=== PATIENT | male | born 1965 | race Two or more races ===

== ENCOUNTER 2018-08-17 10:15 | Observation (INO) | payer BC, OTHER ==
[2018-08-17] MEDS ORDERED: Sodium Chloride 0.9% 10 ML Syringe FLUSH PRN (11:12)
--- NOTE | 2018-08-17 11:12 | EDM.PDOC ---
ED HPI GENERAL MEDICAL PROBLEM - General Chief Complaint: Chest Pain Stated Complaint: CHEST PAIN Time Seen by Provider: 08/17/18 11:09 Source of Information: Reports: Patient History Limitations: Reports: Language Barrier - History of Present Illness INITIAL COMMENTS - FREE TEXT/NARRATIVE: Patient is a 53 year old yakut speaking male who presents to the E.D. complaining of bilateral chest pain, bilateral shoulder pain, and thoracic back pain. States this has been going on for the past 3 months but notes increase over the past week. Patient states with any exertional activity He becomes tired easier with development of pain that radiates from his back along the lateral aspect of his chest and into the anterior aspect of his chest. This is unusual for the patient. 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 At times he does feel short of breath. At no time does he experience any fever, cough, palpitations, dizziness, diaphoresis, abdominal pain, nausea/vomiting, and/or any additional complaints. States he can walk 10 stairs before he gets short of breath. There's been no increase in weight, PND, orthopnea. no pedal edema noted. He has a history of hypertension and high cholesterol. He is on no medications. There is a family history of first degree relative with heart disease. He denies any history of coronary disease or diabetes. He does not smoke or use alcohol or any drugs. he is here working with no PCP locally. Bilateral Shoulder Pain Score (Numeric/FACES): 10 - Related Data Allergies Allergy/AdvReac Type Severity Reaction Status Date / Time Penicillins Allergy Cannot Verified 08/17/18 10:42 Remember Past Medical History - Past Surgical History Other Musculoskeletal Surgeries/Procedures:: inguinal herina repair Social & Family History - Tobacco Use Smoking Status *Q: Never Smoker - Caffeine Use Caffeine Use: Reports: None - Recreational Drug Use Recreational Drug Use: No ED ROS GENERAL - Review of Systems Review Of Systems: See Below Constitutional: Denies: Fever, Chills, Malaise, Weakness, Decreased Appetite HEENT: Reports: No Symptoms Respiratory: Reports: Pleuritic Chest Pain. Denies: Shortness of Breath, Wheezing, Cough, Sputum, Hemoptysis Cardiovascular: Reports: No Symptoms, Chest Pain. Denies: Blood Pressure Problem, Dyspnea on Exertion (Unchanged. Able to walk about 10 stairs without being tired. Deconditioned.), Edema, Lightheadedness (With bending over and standing up.), Orthopnea, Palpitations, PND, Syncope GI/Abdominal: Denies: Abdominal Pain, Black Stool, Bloody Stool, Constipation, Diarrhea, Decreased Appetite, Distension, Flatus, Hematemesis, Hematochezia, Melena, Nausea, Vomiting Skin: Reports: No Symptoms Neurological: Reports: No Symptoms. Denies: Confusion, Dizziness, Headache, Numbness, Tingling ED EXAM, GENERAL - Physical Exam Exam: See Below Exam Limited By: Language Barrier (American-speaking) General Appearance: Alert, WD/WN, No Apparent Distress Eye Exam: Bilateral Eye: EOMI, Normal Inspection, PERRL Ears: Hearing Grossly Normal Nose: Normal Inspection Throat/Mouth: Normal Inspection, Normal Oropharynx, Normal Voice, No Airway Compromise Head: Atraumatic, Normocephalic Neck: Normal Inspection, Supple, Non-Tender, Full Range of Motion Respiratory/Chest: No Respiratory Distress, Lungs Clear, Normal Breath Sounds, No Accessory Muscle Use, Other (Tenderness along the lateral chest garcia increased with palpation and also taking a deep breath. Patient also has complaints of increasing pain with palpation of the mid thoracic back region and along the scapula and trapezius region with palpation. He does feel tight. No bony abnormalities, swelling, bruising, rash present.) Cardiovascular: Normal Peripheral Pulses, Regular Rate, Rhythm, No Edema, No Murmur Peripheral Pulses: 2+: Radial (L), Radial (R), Posterior Tibial (L), Posterior Tibial (R) GI/Abdominal: Normal Bowel Sounds, Soft, Non-Tender, No Organomegaly, No Distention Extremities: Normal Inspection, Normal Range of Motion, Non-Tender, No Pedal Edema Neurological: Alert, Oriented, CN II-XII Intact, Normal Cognition, Normal Gait Psychiatric: Normal Affect, Normal Mood Skin Exam: Warm, Dry, Intact, Normal Color Course - Vital Signs Last Recorded V/S: Last Vital Signs Temp 99.0 F 08/17/18 20:53 Pulse 62 08/17/18 20:53 Resp 12 08/17/18 20:53 BP 113/65 08/17/18 20:53 Pulse Ox 94 L 08/17/18 20:53 - Orders/Labs/Meds Orders: Active Orders 24 hr Category Date Time Status Sodium Chloride 0.9% [Saline Flush] Med 08/17/18 11:12 Active 10 ml FLUSH ASDIRECTED PRN Peripheral IV Insertion Adult [OM.PC] Routine Oth 08/17/18 11:12 Ordered Medication Orders Acetaminophen (Tylenol) 650 mg PO Q4H PRN PRN Reason: Pain (Mild 1-3)/fever Cyclobenzaprine HCl (Flexeril) 10 mg PO TID PRN PRN Reason: Spasms Ibuprofen (Motrin) 400 mg PO Q6H PRN PRN Reason: Pain (mild 1-3) Ondansetron HCl (Zofran Odt) 4 mg PO Q4H PRN PRN Reason: nausea, able to take PO Sodium Chloride (Saline Flush) 10 ml FLUSH ASDIRECTED PRN PRN Reason: Keep Vein Open Last Admin: 08/17/18 11:56 Dose: 10 ml Temazepam (Restoril) 15 mg PO BEDTIME PRN PRN Reason: Sleep Labs: Laboratory Tests 08/17/18 08/17/18 08/17/18 Range/Units 11:31 11:31 11:31 WBC 6.97 (4.23-9.07) K/mm3 RBC 5.01 (4.63-6.08) M/mm3 Hgb 14.5 (13.7-17.5) gm/L Hct 43.7 (40.1-51.0) % MCV 87.2 (79.0-92.2) fl MCH 28.9 (25.7-32.2) pg MCHC 33.2 (32.2-35.5) g/dl RDW Std Deviation 41.8 (35.1-43.9) fL Plt Count 175 (163-337) K/mm3 MPV 12.1 (9.4-12.3) fl Neutrophils % (Manual) 66 H (40-60) % Band Neutrophils % 0 (0-10) % Lymphocytes % (Manual) 26 (20-40) % Atypical Lymphs % 0 % Monocytes % (Manual) 7 (2-10) % Eosinophils % (Manual) 1 (0.8-7.0) % Basophils % (Manual) 0 L (0.2-1.2) Platelet Estimate Adequate RBC Morph Comment Normal ESR 11 (0-15) mm/hr PT 10.3 (9.5-12.1) SECONDS INR 0.94 APTT 27 (24-31) SECONDS Sodium (136-145) mEq/L Potassium (3.5-5.1) mEq/L Chloride (98-107) mEq/L Carbon Dioxide (21-32) mEq/L Anion Gap (5-15) BUN (7-18) mg/dL Creatinine (0.7-1.3) mg/dL Est Cr Clr Drug Dosing mL/min Estimated GFR (MDRD) (>60) mL/min BUN/Creatinine Ratio (14-18) Glucose (74-106) mg/dL Calcium (8.5-10.1) mg/dL Magnesium (1.8-2.4) mg/dl Total Bilirubin (0.2-1.0) mg/dL AST (15-37) U/L ALT (16-63) U/L Alkaline Phosphatase (46-116) U/L Troponin I (0.00-0.056) ng/mL C-Reactive Protein (<1.0) mg/dL Total Protein (6.4-8.2) g/dl Albumin (3.4-5.0) g/dl Globulin gm/dL Albumin/Globulin Ratio (1-2) Lipase (73-393) U/L 08/17/18 08/17/18 08/17/18 Range/Units 11:31 11:31 11:31 WBC (4.23-9.07) K/mm3 RBC (4.63-6.08) M/mm3 Hgb (13.7-17.5) gm/L Hct (40.1-51.0) % MCV (79.0-92.2) fl MCH (25.7-32.2) pg MCHC (32.2-35.5) g/dl RDW Std Deviation (35.1-43.9) fL Plt Count (163-337) K/mm3 MPV (9.4-12.3) fl Neutrophils % (Manual) (40-60) % Band Neutrophils % (0-10) % Lymphocytes % (Manual) (20-40) % Atypical Lymphs % % Monocytes % (Manual) (2-10) % Eosinophils % (Manual) (0.8-7.0) % Basophils % (Manual) (0.2-1.2) Platelet Estimate RBC Morph Comment ESR (0-15) mm/hr PT (9.5-12.1) SECONDS INR APTT (24-31) SECONDS Sodium 136 (136-145) mEq/L Potassium 4.1 (3.5-5.1) mEq/L Chloride 103 (98-107) mEq/L Carbon Dioxide 25 (21-32) mEq/L Anion Gap 12.1 (5-15) BUN 14 (7-18) mg/dL Creatinine 1.0 (0.7-1.3) mg/dL Est Cr Clr Drug Dosing 80.79 mL/min Estimated GFR (MDRD) > 60 (>60) mL/min BUN/Creatinine Ratio 14.0 (14-18) Glucose 105 (74-106) mg/dL Calcium 9.3 (8.5-10.1) mg/dL Magnesium 1.9 (1.8-2.4) mg/dl Total Bilirubin 0.4 (0.2-1.0) mg/dL AST 19 (15-37) U/L ALT 40 (16-63) U/L Alkaline Phosphatase 53 (46-116) U/L Troponin I < 0.017 (0.00-0.056) ng/mL C-Reactive Protein < 0.2 (<1.0) mg/dL Total Protein 7.5 (6.4-8.2) g/dl Albumin 3.9 (3.4-5.0) g/dl Globulin 3.6 gm/dL Albumin/Globulin Ratio 1.1 (1-2) Lipase 202 (73-393) U/L 08/17/18 08/17/18 Range/Units 11:32 15:35 WBC (4.23-9.07) K/mm3 RBC (4.63-6.08) M/mm3 Hgb (13.7-17.5) gm/L Hct (40.1-51.0) % MCV (79.0-92.2) fl MCH (25.7-32.2) pg MCHC (32.2-35.5) g/dl RDW Std Deviation (35.1-43.9) fL Plt Count (163-337) K/mm3 MPV (9.4-12.3) fl Neutrophils % (Manual) (40-60) % Band Neutrophils % (0-10) % Lymphocytes % (Manual) (20-40) % Atypical Lymphs % % Monocytes % (Manual) (2-10) % Eosinophils % (Manual) (0.8-7.0) % Basophils % (Manual) (0.2-1.2) Platelet Estimate RBC Morph Comment ESR (0-15) mm/hr PT (9.5-12.1) SECONDS INR APTT (24-31) SECONDS Sodium (136-145) mEq/L Potassium (3.5-5.1) mEq/L Chloride (98-107) mEq/L Carbon Dioxide (21-32) mEq/L Anion Gap (5-15) BUN (7-18) mg/dL Creatinine (0.7-1.3) mg/dL Est Cr Clr Drug Dosing mL/min Estimated GFR (MDRD) (>60) mL/min BUN/Creatinine Ratio (14-18) Glucose (74-106) mg/dL Calcium (8.5-10.1) mg/dL Magnesium (1.8-2.4) mg/dl Total Bilirubin (0.2-1.0) mg/dL AST (15-37) U/L ALT (16-63) U/L Alkaline Phosphatase (46-116) U/L Troponin I Cancelled < 0.017 (0.00-0.056) ng/mL C-Reactive Protein (<1.0) mg/dL Total Protein (6.4-8.2) g/dl Albumin (3.4-5.0) g/dl Globulin gm/dL Albumin/Globulin Ratio (1-2) Lipase (73-393) U/L Meds: Medications Generic Name Dose Route Start Last Admin Trade Name Freq PRN Reason Stop Dose Admin Acetaminophen 650 mg 08/17/18 18:23 Tylenol PO Q4H PRN Pain (Mild 1-3)/fever Cyclobenzaprine HCl 10 mg 08/17/18 18:26 Flexeril PO TID PRN Spasms Ibuprofen 400 mg 08/17/18 18:23 Motrin PO Q6H PRN Pain (mild 1-3) Ondansetron HCl 4 mg 08/17/18 18:23 Zofran Odt PO Q4H PRN nausea, able to take PO Sodium Chloride 10 ml 08/17/18 11:12 08/17/18 11:56 Saline Flush FLUSH 10 ml ASDIRECTED PRN Administration Keep Vein Open Temazepam 15 mg 08/17/18 18:23 Restoril PO BEDTIME PRN Sleep Discontinued Medications Generic Name Dose Route Start Last Admin Trade Name Watson PRN Reason Stop Dose Admin Aspirin 324 mg 08/17/18 14:06 08/17/18 14:18 Aspirin PO 08/17/18 14:07 324 mg ONETIME ONE Administration Cyclobenzaprine HCl 10 mg 08/17/18 14:09 08/17/18 14:18 Flexeril PO 08/17/18 14:10 10 mg ONETIME ONE Administration - Re-Assessments/Exams Free Text/Narrative Re-Assessment/Exam: Vital signs blood pressure 143/95, rest rate 16, O2 sats 97% on room air, heart rate 75. On exam patient has increasing discomfort with palpation of the lateral chest garcia worse with palpation and also taking a deep breath. He also has some discomfort to the mid thoracic back and along the trapezius muscles with palpation. There is no rash, bony abnormalities, ecchymosis, swelling, or any other concerning findings noted. Patient appears to be tense. He denies any shortness of breath, hemoptysis, fever, chest pain, abdominal pain, dizziness, lightheadedness, and/or any additional complaints with examination. He also denies any pain with palpation of his lower extremities or increased swelling. He has no history of PE/DVT. IV was established. Initial labs and studies will include: CBC, chem 14, coag studies, troponin, chest x-ray, and EKG. Labs reviewed: CBC essentially normal. ESR 11. CMP normal. Troponin within normal limits. CRP normal. Chest x-ray reviewed with Dr. Ross with no acute findings noted. EKG has not been obtained yet. Lipase has been ordered. He has no history of pancreatitis. 08/17/18 13:57 EKG obtained indicated sinus rhythm at rate of 71. MS interval 176. QTC 421. UTI UA's in leads 3 and aVF. Consider old inferior wall NH. Likely LVH pattern. Consider left atrial hypertrophy. Lipase within normal limits. 1358 I discussed the labs, EKG, chest x-ray findings with the patient. Utilized insect control inspector to do so. I do believe this is more muscloskeletal in origin with discomfort reproducible with examination. I will have the patient get up and ambulate and see if the discomfort is reproducible. In preparation for discharge I will go ahead and complete discharge instructions. 08/17/18 14:09 Patient ambulated with nursing staff and develop chest discomfort as well as back discomfort. He states the discomfort to his back radiates into the front into his chest and is reproducible. He is not short of breath. He does not feel sick to stomach. There is no diaphoresis. He does not have the sensation he is going to pass out. No abdominal pain noted as well. I have ordered a ASA 325 mg, repeat EKG, 2nd troponin, and flexeril 10mg PO. 2nd EKG indicated developing Q waves in leads 3 and aVF. Also the patient has flipped his T waves in leads 5 and V6. Significant change from previous EKG. 1431 I did speak with Dr. Zurita for admission to the hospital for serial troponins and stress test in the morning. He has reviewed the EKGs and also last. Request third EKG be obtained after the second troponin has been resulted. He questions if the EKG changes may have a result of placement. 08/17/18 14:53 second troponin was negative. 3rd EKG is pending. Third EKG impression: Sinus rhythm at a rate of 65. Incomplete right bundle branch block. R early R-wave. Transition. RVH septal hypertrophy pattern. New Q waves in leads 3 and aVF. T-wave flattening in aVF. Lightly left insular pattern tall R-wave. No acute ST changes noted. 08/17/18 15:00 I did speak to Dr. Zurita results of the third EKG and troponin. He has agreed to admit the patient. Dr. Zurita has no privileges for stress test. The oncoming hospitalist will have to perform the stress test. Departure - Departure Time of Disposition: 14:00 Disposition: Home, Self-Care 01 Condition: Good Clinical Impression: Atypical chest pain Additional Instructions: As discussed pain is reproducible with palpation. This is suggesting more muscle related. Utilize the muscle relaxers as prescribed when necessary for pain. Also utilize ibuprofen and Tylenol in alternating fashion for pain. May apply heat to the general area with gentle massage and also stretching. Please establish care with a medical provider here locally for further management of her chronic disease states. If you experience any new or worsening symptoms please return back to the ED for reevaluation. - My Orders Last 24 Hours: My Active Orders 08/17/18 11:12 Sodium Chloride 0.9% [Saline Flush] 10 ml FLUSH ASDIRECTED PRN Peripheral IV Insertion Adult [OM.PC] Routine - Assessment/Plan Last 24 Hours: My Active Orders 08/17/18 11:12 Sodium Chloride 0.9% [Saline Flush] 10 ml FLUSH ASDIRECTED PRN Peripheral IV Insertion Adult [OM.PC] Routine
[2018-08-17] MEDS ORDERED: Aspirin 81 MG Tab.Chew PO ONE (14:06)
[2018-08-17] MEDS ORDERED: Cyclobenzaprine 10 MG Tab PO ONE (14:09)
--- NOTE | 2018-08-17 15:01 | CR ---
Chest: Frontal view of the chest was obtained utilizing portable technique. Comparison: No prior chest imaging. Heart size and mediastinum are normal. Lungs are clear. Bony structures are grossly intact. Impression: 1. Nothing acute is appreciated on portable chest x-ray. Diagnostic code #1
[2018-08-17] MEDS ORDERED: Ibuprofen 400 MG Tab PO PRN (18:23)
[2018-08-17] MEDS ORDERED: Temazepam 15 MG Cap PO PRN (18:23)
[2018-08-17] MEDS ORDERED: Acetaminophen 325 MG Tab PO PRN (18:23)
[2018-08-17] MEDS ORDERED: Ondansetron 4 MG Tab.DIS PO PRN (18:23)
[2018-08-17] MEDS ORDERED: Cyclobenzaprine 10 MG Tab PO PRN (18:26)
--- NOTE | 2018-08-17 18:36 | PCM.HP ---
H&P History of Present Illness - General Date of Service: 08/17/18 Admit Problem/Dx: Admission Diagnosis/Problem Admission Diagnosis/Problem Chest pain of uncertain etiology - History of Present Illness Initial Comments - Free Text/Narative: 53-year-old male that presents to the emergency room with mid lateral thoracic back pain. Patient states it is worse with activity. It is worse with taking stairs and taking deep breaths. It is reproducible to palpation. Patient does have a history of hypertension and denies history of diabetes. Emergency room patient was about to be discharged and when he got up to walk he had this similar back pain that radiated to his anterior flanks raising concern for ischemia. 3 EKGs were done in the emergency room and there was a significant difference between EKG 12 and then 3 came back to normal with 1. EKG on 2018 at 11 AM showed normal sinus rhythm with ventricular rate of 71 bpm. There were inverted T waves in lead 3 and aVF. Otherwise normal. Repeat EKG at 1413 showed normal sinus rhythm with particular rate of 70 bpm. new Q waves in lead 3 and aVF with deeper T-wave inversion in 3 and aVF. There is early transition at V3. New Q waves in V1 which are likely normal. T-wave inversions in the lateral leads of V5 and V6 with flattening of T waves in V3 and V4. This is a significant change from the earlier EKG. EKG at 1500 showed normal sinus rhythm with ventricular rate of 65 bpm. T waves were inverted and no Q waves in lead 3. AVF showed flattening of T waves and T waves were now normal and anterolateral leads. This EKG is not much different from EKG done at 11:00. Likely there was a lead change or other technical abnormality in regards to the 1413 EKG. Serial troponins were done and negative. Plan was to admit patient for observation and stress test in the morning. Bilateral Shoulder Pain Score (Numeric/FACES): 4 - Related Data Allergies/Adverse Reactions: Allergies Allergy/AdvReac Type Severity Reaction Status Date / Time Penicillins Allergy Cannot Verified 08/17/18 10:42 Remember Home Medications: Home Meds tiZANidine [Zanaflex] 4 mg PO BID PRN #10 tab 08/17/18 [Rx] Past Medical History Gastrointestinal History: Reports: Chronic Constipation, Gastritis, GERD - Past Surgical History Other Musculoskeletal Surgeries/Procedures:: inguinal herina repair Social & Family History - Family History Family Medical History: Noncontributory - Tobacco Use Smoking Status *Q: Never Smoker Second Hand Smoke Exposure: No - Caffeine Use Caffeine Use: Reports: Coffee, Soda - Recreational Drug Use Recreational Drug Use: No H&P Review of Systems - Review of Systems: Review Of Systems: ROS reveals no pertinent complaints other than HPI. Exam - Exam Exam: See Below - Vital Signs Vital Signs: Last Vital Signs Temp 97.9 F 08/17/18 17:01 Pulse 57 L 08/17/18 17:01 Resp 16 08/17/18 17:01 BP 124/80 08/17/18 17:01 Pulse Ox 96 08/17/18 17:01 Weight: 213 lb - Exam Quality Assessment: No: Supplemental Oxygen General: Alert, Oriented HEENT: Conjunctiva Clear, Mucosa Moist & [place], Posterior Pharynx Clear Neck: Supple, Trachea Midline Lungs: Clear to Auscultation, Normal Respiratory Effort Cardiovascular: Regular Rate, Regular Rhythm GI/Abdominal Exam: Normal Bowel Sounds, Soft, Non-Tender, No Organomegaly, No Distention Extremities: Normal Inspection, Normal Range of Motion, Non-Tender, No Pedal Edema Skin: Warm, Dry, Intact Neuro Extensive - Mental Status: Alert, Oriented x3, Normal Mood/Affect, Normal Cognition, Memory Intact Neuro Extensive - Motor, Sensory, Reflexes: CN II-XII Intact, Normal Gait, Normal Reflexes Psychiatric: Alert, Normal Affect, Normal Mood - Patient Data Lab Results Last 24 hrs: Laboratory Results - last 24 hr 08/17/18 08/17/18 08/17/18 Range/Units 11:31 11:31 11:31 WBC 6.97 (4.23-9.07) K/mm3 RBC 5.01 (4.63-6.08) M/mm3 Hgb 14.5 (13.7-17.5) gm/L Hct 43.7 (40.1-51.0) % MCV 87.2 (79.0-92.2) fl MCH 28.9 (25.7-32.2) pg MCHC 33.2 (32.2-35.5) g/dl RDW Std Deviation 41.8 (35.1-43.9) fL Plt Count 175 (163-337) K/mm3 MPV 12.1 (9.4-12.3) fl Neutrophils % (Manual) 66 H (40-60) % Band Neutrophils % 0 (0-10) % Lymphocytes % (Manual) 26 (20-40) % Atypical Lymphs % 0 % Monocytes % (Manual) 7 (2-10) % Eosinophils % (Manual) 1 (0.8-7.0) % Basophils % (Manual) 0 L (0.2-1.2) Platelet Estimate Adequate RBC Morph Comment Normal ESR 11 (0-15) mm/hr PT 10.3 (9.5-12.1) SECONDS INR 0.94 APTT 27 (24-31) SECONDS Sodium (136-145) mEq/L Potassium (3.5-5.1) mEq/L Chloride (98-107) mEq/L Carbon Dioxide (21-32) mEq/L Anion Gap (5-15) BUN (7-18) mg/dL Creatinine (0.7-1.3) mg/dL Est Cr Clr Drug Dosing mL/min Estimated GFR (MDRD) (>60) mL/min BUN/Creatinine Ratio (14-18) Glucose (74-106) mg/dL Calcium (8.5-10.1) mg/dL Magnesium (1.8-2.4) mg/dl Total Bilirubin (0.2-1.0) mg/dL AST (15-37) U/L ALT (16-63) U/L Alkaline Phosphatase (46-116) U/L Troponin I (0.00-0.056) ng/mL C-Reactive Protein (<1.0) mg/dL Total Protein (6.4-8.2) g/dl Albumin (3.4-5.0) g/dl Globulin gm/dL Albumin/Globulin Ratio (1-2) Lipase (73-393) U/L 08/17/18 08/17/18 08/17/18 Range/Units 11:31 11:31 11:31 WBC (4.23-9.07) K/mm3 RBC (4.63-6.08) M/mm3 Hgb (13.7-17.5) gm/L Hct (40.1-51.0) % MCV (79.0-92.2) fl MCH (25.7-32.2) pg MCHC (32.2-35.5) g/dl RDW Std Deviation (35.1-43.9) fL Plt Count (163-337) K/mm3 MPV (9.4-12.3) fl Neutrophils % (Manual) (40-60) % Band Neutrophils % (0-10) % Lymphocytes % (Manual) (20-40) % Atypical Lymphs % % Monocytes % (Manual) (2-10) % Eosinophils % (Manual) (0.8-7.0) % Basophils % (Manual) (0.2-1.2) Platelet Estimate RBC Morph Comment ESR (0-15) mm/hr PT (9.5-12.1) SECONDS INR APTT (24-31) SECONDS Sodium 136 (136-145) mEq/L Potassium 4.1 (3.5-5.1) mEq/L Chloride 103 (98-107) mEq/L Carbon Dioxide 25 (21-32) mEq/L Anion Gap 12.1 (5-15) BUN 14 (7-18) mg/dL Creatinine 1.0 (0.7-1.3) mg/dL Est Cr Clr Drug Dosing 80.79 mL/min Estimated GFR (MDRD) > 60 (>60) mL/min BUN/Creatinine Ratio 14.0 (14-18) Glucose 105 (74-106) mg/dL Calcium 9.3 (8.5-10.1) mg/dL Magnesium 1.9 (1.8-2.4) mg/dl Total Bilirubin 0.4 (0.2-1.0) mg/dL AST 19 (15-37) U/L ALT 40 (16-63) U/L Alkaline Phosphatase 53 (46-116) U/L Troponin I < 0.017 (0.00-0.056) ng/mL C-Reactive Protein < 0.2 (<1.0) mg/dL Total Protein 7.5 (6.4-8.2) g/dl Albumin 3.9 (3.4-5.0) g/dl Globulin 3.6 gm/dL Albumin/Globulin Ratio 1.1 (1-2) Lipase 202 (73-393) U/L 08/17/18 08/17/18 Range/Units 11:32 15:35 WBC (4.23-9.07) K/mm3 RBC (4.63-6.08) M/mm3 Hgb (13.7-17.5) gm/L Hct (40.1-51.0) % MCV (79.0-92.2) fl MCH (25.7-32.2) pg MCHC (32.2-35.5) g/dl RDW Std Deviation (35.1-43.9) fL Plt Count (163-337) K/mm3 MPV (9.4-12.3) fl Neutrophils % (Manual) (40-60) % Band Neutrophils % (0-10) % Lymphocytes % (Manual) (20-40) % Atypical Lymphs % % Monocytes % (Manual) (2-10) % Eosinophils % (Manual) (0.8-7.0) % Basophils % (Manual) (0.2-1.2) Platelet Estimate RBC Morph Comment ESR (0-15) mm/hr PT (9.5-12.1) SECONDS INR APTT (24-31) SECONDS Sodium (136-145) mEq/L Potassium (3.5-5.1) mEq/L Chloride (98-107) mEq/L Carbon Dioxide (21-32) mEq/L Anion Gap (5-15) BUN (7-18) mg/dL Creatinine (0.7-1.3) mg/dL Est Cr Clr Drug Dosing mL/min Estimated GFR (MDRD) (>60) mL/min BUN/Creatinine Ratio (14-18) Glucose (74-106) mg/dL Calcium (8.5-10.1) mg/dL Magnesium (1.8-2.4) mg/dl Total Bilirubin (0.2-1.0) mg/dL AST (15-37) U/L ALT (16-63) U/L Alkaline Phosphatase (46-116) U/L Troponin I Cancelled < 0.017 (0.00-0.056) ng/mL C-Reactive Protein (<1.0) mg/dL Total Protein (6.4-8.2) g/dl Albumin (3.4-5.0) g/dl Globulin gm/dL Albumin/Globulin Ratio (1-2) Lipase (73-393) U/L Result Diagrams: 08/17/18 11:31 08/17/18 11:31 - Problem List (1) Chest pain SNOMED Code(s): 28028637 ICD Code: R07.9 - CHEST PAIN, UNSPECIFIED Status: Acute Current Visit: Yes (2) Back pain SNOMED Code(s): 761450233 ICD Code: M54.9 - DORSALGIA, UNSPECIFIED Status: Acute Current Visit: Yes Qualifiers: Back pain location: thoracic back pain Chronicity: chronic Back pain laterality: bilateral Qualified Code(s): M54.6 - Pain in thoracic spine; G89.29 - Other chronic pain Problem List Initiated/Reviewed/Updated: Yes Orders Last 24hrs: Active Orders 24 hr Category Date Time Status Patient Status [ADT] Routine ADT 08/17/18 16:24 Active Antiembolic Devices [RC] PER UNIT ROUTINE Care 08/17/18 18:25 Active Oxygen Therapy [RC] PRN Care 08/17/18 18:23 Active Up ad Emmie [RC] ASDIRECTED Care 08/17/18 18:23 Active VTE/DVT Education [RC] PER UNIT ROUTINE Care 08/17/18 18:23 Active Vital Signs [RC] Q4H Care 08/17/18 18:23 Active Heart Healthy Diet [DIET] Diet 08/18/18 Dinner Active Nothing Per Oral Diet [DIET] Diet 08/18/18 Breakfast Active Regular Diet [DIET] Diet 08/17/18 Dinner Active TROPONIN I [CHEM] Timed Lab 08/17/18 20:00 Ordered Acetaminophen [Tylenol] Med 08/17/18 18:23 Ordered 650 mg PO Q4H PRN Cyclobenzaprine [Flexeril] Med 08/17/18 18:26 Ordered 10 mg PO TID PRN Ibuprofen [Motrin] Med 08/17/18 18:23 Ordered 400 mg PO Q6H PRN Ondansetron [Zofran ODT] Med 08/17/18 18:23 Ordered 4 mg PO Q4H PRN Sodium Chloride 0.9% [Saline Flush] Med 08/17/18 11:12 Active 10 ml FLUSH ASDIRECTED PRN Temazepam [Restoril] Med 08/17/18 18:23 Ordered 15 mg PO BEDTIME PRN Antiembolic Hose [OM.PC] Per Unit Routine Oth 08/17/18 18:24 Ordered Peripheral IV Insertion Adult [OM.PC] Routine Oth 08/17/18 11:12 Ordered Resuscitation Status Routine Resus Stat 08/17/18 18:23 Ordered EKG Stress NM Cardiolyte [EK] Routine Ther 08/18/18 18:07 Ordered Medication Orders Acetaminophen (Tylenol) 650 mg PO Q4H PRN PRN Reason: Pain (Mild 1-3)/fever Cyclobenzaprine HCl (Flexeril) 10 mg PO TID PRN PRN Reason: Spasms Ibuprofen (Motrin) 400 mg PO Q6H PRN PRN Reason: Pain (mild 1-3) Ondansetron HCl (Zofran Odt) 4 mg PO Q4H PRN PRN Reason: nausea, able to take PO Sodium Chloride (Saline Flush) 10 ml FLUSH ASDIRECTED PRN PRN Reason: Keep Vein Open Last Admin: 08/17/18 11:56 Dose: 10 ml Temazepam (Restoril) 15 mg PO BEDTIME PRN PRN Reason: Sleep Assessment/Plan Comment:: Assessment * 53-year-old male with history of hypertension with bilateral back pain radiating to the chest with activity. * Abnormal EKG * Rule out AL Plan * admit to observation on telemetry * Finish serial troponin at 1999 * Stress test with Cardiolite in the morning. * Tylenol, ibuprofen, and Flexeril for pain. * Monitor vitals * CODE STATUS: Full code * CT prophylaxis with compression stockings
--- NOTE | 2018-08-18 14:05 | NM ---
Cardiolite cardiac scan Technique: I have data stating the patient was stressed utilizing treadmill protocol. Patient reached 151 bpm which is above the patient's 85% maximum predicted heart rate of 143 bpm. Stress dose of technetium 99m Cardiolite was 11.6 mCi. Rest dose was 31.1 mCi. SPECT imaging was obtained in 3 planes for both portions of the study. Study was gated. Low-dose chest CT performed to allow for attenuation correction. Comparison: No prior cardiac imaging is available. Findings: Activity within the left ventricular myocardium is homogeneous between rest and stress studies. No fixed or reversible type defects are seen. Ejection fraction is 57%. Wall thickening and wall motion are normal. Impression: 1. Nothing appreciated at this time to indicate reversible ischemia. 2. Normal ejection fraction. Diagnostic code #1
--- NOTE | 2018-08-18 18:17 | PCM.DCSUM1 ---
Discharge Summary - Hospital Course Free Text/Narrative:: 08/17/18 53 year old non urdu speaking male with chest ad back pain increased with walking admitted for rule out atypical anginal pain and doing better since admission with muscle relaxants and motrin . has significant gastritis and has normal bs but hyperlipidemia by hx and not on treatment . hx of anxiety which seems to be triggering symptoms as well . admits panic symptoms at work . p.e shows left back and scapular discomfort and left flank pain . not increased with deep breathing today and no pleuritic sounds cor rrr 60s no m or s3/4 neck no jvd or thyriod but heavy acanthosis nicgricans and mildly tender abd /flanks benign /minimal epigastric tenderness no bruits fem pulses normal no abd tenderness heent / halitosis and belchy . stress test negative and d dimer pending but no signs of cv symptoms . assess back pain improved and m.s anxiety abd pain with hx of [previous gastritis or ulcer without bleeding and chronic symptoms . risk factors for dm and cad but normal testing plan discussed through interpreters the results of all the above tests and that his heart is okay . . he agrees to anxiety treatment and follow up and is not restricted from activity . if symptoms return he should return for evaluation and follow up with me in 2 weeks boh HPI Initial Comments: see admit for chest pain atypical - Discharge Data Discharge Date: 08/18/18 Discharge Disposition: Home, Self-Care 01 Condition: Good - Discharge Diagnosis/Problem(s) (1) Atypical chest pain SNOMED Code(s): 473566998 ICD Code: R07.89 - OTHER CHEST PAIN Status: Acute Priority: Low Current Visit: Yes Onset Date: 08/18/18 (2) Gastritis SNOMED Code(s): 0743217 ICD Code: K29.70 - GASTRITIS, UNSPECIFIED, WITHOUT BLEEDING Status: Acute Priority: Medium Current Visit: Yes Onset Date: 08/18/18 (3) Left-sided chest wall pain SNOMED Code(s): 905059099 ICD Code: R07.89 - OTHER CHEST PAIN Status: Acute Current Visit: Yes (4) Anxiety SNOMED Code(s): 72156424 ICD Code: F41.9 - ANXIETY DISORDER, UNSPECIFIED Status: Acute Priority: Medium Current Visit: Yes Onset Date: 08/18/18 Problem Details: never treated - Patient Summary/Data Consults: eleni Recommended Follow-up Testing/Procedures: stress test Hospital Course: very stable and gradual resolution of back and left chest wall pain remains and anxiety better - Patient Instructions Diet: Heart Healthy Diet, Usual Diet as Tolerated Diet, Other: low carb high veggie diet Activity: As Tolerated Showering/Bathing: May Shower, No Showering Notify Provider of: Increased Pain - Discharge Plan *PRESCRIPTION DRUG MONITORING PROGRAM REVIEWED*: Not Applicable *COPY OF PRESCRIPTION DRUG MONITORING REPORT IN PATIENT JOSTIN: Not Applicable Oxygen Therapy Mode: Room Air Patient Handouts: Acute Back Pain, Adult, Back Exercises, [id number], Musculoskeletal Pain Referrals: Christofer Lennon MD [Physician] - 09/01/18 10:30 am (Please check in at 10:00 am.) - Discharge Summary/Plan Comment DC Time >30 min.: Yes (f/u in 2 weeks ) - General Info Date of Service: 08/18/18 Admission Dx/Problem (Free Text: Admission Diagnosis/Problem Admission Diagnosis/Problem Chest pain of uncertain etiology see dc sum note Functional Status: Reports: Pain Controlled - Review of Systems General: Reports: No Symptoms HEENT: Reports: No Symptoms Pulmonary: Reports: No Symptoms Cardiovascular: Reports: No Symptoms Gastrointestinal: Reports: No Symptoms Genitourinary: Reports: No Symptoms Musculoskeletal: Reports: No Symptoms Skin: Reports: No Symptoms Neurological: Reports: No Symptoms Psychiatric: Reports: No Symptoms - Patient Data Vitals - Most Recent: Last Vital Signs Temp 36.9 C 08/18/18 11:45 Pulse 73 08/18/18 11:45 Resp 18 08/18/18 11:45 BP 109/85 08/18/18 11:45 Pulse Ox 99 08/18/18 11:45 Weight - Most Recent: 96.57 kg I&O - Last 24 hours: Intake & Output 08/18/18 08/18/18 08/18/18 06:59 14:59 22:59 Intake Total 500 Balance 500 Lab Results - Last 24 hrs: Laboratory Results - last 24 hr 08/17/18 Range/Units 20:05 Troponin I < 0.017 (0.00-0.056) ng/mL Med Orders - Current: Current Medications Acetaminophen (Tylenol) 650 mg PO Q4H PRN PRN Reason: Pain (Mild 1-3)/fever Cyclobenzaprine HCl (Flexeril) 10 mg PO TID PRN PRN Reason: Spasms Ibuprofen (Motrin) 400 mg PO Q6H PRN PRN Reason: Pain (mild 1-3) Ondansetron HCl (Zofran Odt) 4 mg PO Q4H PRN PRN Reason: nausea, able to take PO Sodium Chloride (Saline Flush) 10 ml FLUSH ASDIRECTED PRN PRN Reason: Keep Vein Open Last Admin: 08/17/18 11:56 Dose: 10 ml Temazepam (Restoril) 15 mg PO BEDTIME PRN PRN Reason: Sleep Discontinued Medications Aspirin (Aspirin) 324 mg PO ONETIME ONE Stop: 08/17/18 14:07 Last Admin: 08/17/18 14:18 Dose: 324 mg Cyclobenzaprine HCl (Flexeril) 10 mg PO ONETIME ONE Stop: 08/17/18 14:10 Last Admin: 08/17/18 14:18 Dose: 10 mg - Exam General: Reports: Alert, Oriented HEENT: Reports: Pupils Equal, Pupils Reactive, EOMI, Mucous Membr. Moist/[place] Neck: Reports: Supple Lungs: Reports: Clear to Auscultation, Normal Respiratory Effort Cardiovascular: Reports: Regular Rate, Regular Rhythm GI/Abdominal Exam: Normal Bowel Sounds, Soft, Non-Tender, No Organomegaly, No Distention, No Abnormal Bruit, No Mass, Pelvis Stable (Male) Exam: No Hernia, Normal Inspection, Normal Prostate, Circumcised Rectal (Males) Exam: Normal Exam, Normal Rectal Tone, Prostate Normal Back Exam: Reports: Normal Inspection, Full Range of Motion Extremities: Normal Inspection, Normal Range of Motion, Non-Tender, No Pedal Edema, Normal Capillary Refill Skin: Reports: Warm, Dry, Intact Wound/Incisions: Reports: Healing Well Neurological: Reports: No New Focal Deficit Psy/Mental Status: Reports: Alert, Normal Affect, Normal Mood
--- NOTE | 2018-08-19 07:03 | STRESS ---
REQUESTING PHYSICIAN: Niesl Zurita MD DATE: 08/18/2018 INDICATION FOR TEST: Chest pain and shortness of breath with exertion. RESULTS OF TESTS: The patient exercised for a total of 8 minutes 37 seconds and had no clinical chest pain. There was scattered EKG changes with minimal ST depression noted in the inferior leads, but when compared to baseline, did not meet criteria significant for ischemic changes. The patient had no other significant ST-T wave changes noted. There were no arrhythmias noted. Resting heart rate characteristics were [address] depression with downsloping T wave segments and inverted T-waves in inferior leads 3 and aVF. No significant change throughout recording. Maximal heart rate recorded 152. Target heart rate was 143. Resting blood pressure 127/92. Maximum blood pressure recorded 138/68. METS 10.1. The patient achieved stage III with maximal speed of 2.4 miles/hour and a grade of 14%. Maximal worst ST depression in V1 0.7, nonsignificant change from baseline. ASSESSMENT: Negative EKG portion of stress test. MMODAL /[id number]
== END 2018-08-18 20:20 | disposition home or self-care (01) ==
LOC: JD.ED 10:15 → JD.MS 16:24
PROVIDERS: ADMIT Family Medicine; ATTEND Family Medicine
DX: R07.89 Other chest pain (principal); R94.31 Abnormal electrocardiogram [ECG] [EKG]; K29.70 Gastritis, unspecified, without bleeding; I10 Essential (primary) hypertension; F41.9 Anxiety disorder, unspecified; G89.29 Other chronic pain; M54.6 Pain in thoracic spine; Z88.0 Allergy status to penicillin
CPT/HCPCS: 36415; 71045; 78452; 80053; 80061; 83690; 83735; 84484; 85007; 85027; 85379; 85610; 85652; 85730; 86140; 86677; 93005; 93017; 99285; A9270; A9500; 93010; 99284; G0378

== ENCOUNTER 2019-04-13 13:15 | Emergency (ER) | payer BC, OTHER ==
--- NOTE | 2019-04-13 14:41 | EDM.PDOC ---
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 Stewart is a very pleasant 53-year-old man with no chronic medical issues, who states that he developed generalized weakness, fever, chills, and nausea with one episode of emesis, yesterday. He has had a nonproductive cough, but denies dyspnea. No constipation, diarrhea, or urinary symptoms. He states that he took Tylenol last night and again this morning, to treat his fever, but that his fever keeps coming back. He took NyQuil, which did not seem to help at all. Here in the ED, the patient is found to have a fever of 101.6 degrees, saturating 95% on room air. The patient's PCP is Dr. Christofer Miles. He did not receive an influenza vaccine this season, but agreed to receive one here today. Headache Pain Score (Numeric/FACES): 10 - Related Data Allergies Allergy/AdvReac Type Severity Reaction Status Date / Time Penicillins Allergy Cannot Verified 04/13/19 13:38 Remember Home Meds: Home Meds Oseltamivir [Tamiflu] 1 cap PO Q12H #9 cap 04/13/19 [Rx] Past Medical History Endocrine/Metabolic History: Reports: Obesity/BMI 30+ - Past Surgical History GI Surgical History: Reports: Hernia, Inguinal (left) Social & Family History - Family History Family Medical History: Noncontributory - Tobacco Use Smoking Status *Q: Never Smoker - Caffeine Use Caffeine Use: Reports: Energy Drinks, Soda - Alcohol Use Alcohol Use History: Yes Date/Time of Last Drink Comment: None since 2004 - Recreational Drug Use Recreational Drug Use: No - Living Situation & Occupation Living situation: Reports: , with Spouse Occupation: Employed ([employer]) ED ROS GENERAL - Review of Systems Review Of Systems: Comprehensive ROS is negative, except as noted in HPI. GI/Abdominal: Reports: Constipation ED EXAM, GENERAL - Physical Exam Exam: See Below Exam Limited By: No Limitations General Appearance: Alert, WD/WN, No Apparent Distress Eye Exam: Bilateral Eye: EOMI, Normal Inspection Ears: Normal External Exam, Normal Canal, Hearing Grossly Normal, Normal TMs Nose: Normal Inspection, Normal Mucosa, No Blood Throat/Mouth: Normal Inspection, Normal Lips, Normal Teeth, Normal Gums, Normal Oropharynx, Normal Voice, No Airway Compromise Head: Atraumatic, Normocephalic Neck: Normal Inspection, Supple, Non-Tender, Full Range of Motion. No: Lymphadenopathy (L), Lymphadenopathy (R) Respiratory/Chest: No Respiratory Distress, Lungs Clear, Normal Breath Sounds, No Accessory Muscle Use. No: Decreased Breath Sounds, Crackles, Rhonchi, Wheezing, Stridor, Prolonged Expiration Cardiovascular: Normal Peripheral Pulses, Regular Rate, Rhythm, No Edema, No Gallop, No JVD, No Murmur, No Rub Peripheral Pulses: 4+: Radial (L), Radial (R) GI/Abdominal: Normal Bowel Sounds, Soft, Non-Tender, No Organomegaly, No Distention, No Abnormal Bruit, No Mass (Male) Exam: Deferred Rectal (Males) Exam: Deferred Back Exam: Normal Inspection, Full Range of Motion, NT Extremities: Normal Inspection, Normal Range of Motion, No Pedal Edema, Normal Capillary Refill Neurological: Alert, Oriented, Normal Cognition, No Motor/Sensory Deficits Psychiatric: Normal Affect Skin Exam: Warm, Dry, Intact, Normal Color, No Rash Course - Vital Signs Last Recorded V/S: Last Vital Signs Temp 38.7 C H 04/13/19 13:32 Pulse 89 04/13/19 13:32 Resp 19 04/13/19 15:40 BP 130/82 04/13/19 15:40 Pulse Ox 93 L 04/13/19 15:40 - Orders/Labs/Meds Orders: Active Orders 24 hr Category Date Time Status Influenza Vaccine Charge [RC] .DISCHARGE Care 04/13/19 14:39 Active Meds: Medications Discontinued Medications Generic Name Dose Route Start Last Admin Trade Name Freq PRN Reason Stop Dose Admin Influenza Virus Vaccine 60 mcg 04/13/19 14:45 04/13/19 15:07 Fluzone Quad 0325-2797 Syringe IM 04/13/19 14:46 60 mcg .ONCE ONE Administration Oseltamivir Phosphate 75 mg 04/13/19 15:10 04/13/19 15:13 Tamiflu PO 04/13/19 15:11 75 mg ONETIME ONE Administration Oseltamivir Phosphate Confirm 04/13/19 15:12 Tamiflu Administered 04/13/19 15:13 Dose 75 mg .ROUTE .[facility] ONE - Re-Assessments/Exams Free Text/Narrative Re-Assessment/Exam: 04/13/19 14:40 Clinically, the patient likely has influenza. An influenza swab was ordered at triage, and I have added a chest x-ray. So long as the chest x-ray is unremarkable, I do not see a need for blood work, however, if his chest x-ray demonstrates an infiltrate, then we will need some blood work. 04/13/19 15:11 Two-view chest radiograph reviewed. Poor inspiratory effort which may increase lung density. The cardiac silhouette is within normal limits. No pulmonary vascular congestion. No pleural effusions. No focal infiltrate. No pneumothorax. Formal read per the Radiologist pending. The patient's influenza swab has returned positive for influenza A. I have ordered Tamiflu 75 mg p.o. 04/13/19 15:23 Test results discussed with the patient. As above, the patient has influenza A. He will be started on Tamiflu prior to discharge, and I will submit a prescription to complete a 5-day course. He should also take [id number] ibuprofen as needed for discomfort of fever. All questions answered. Departure - Departure Time of Disposition: 15:24 Disposition: Home, Self-Care 01 Condition: Good Clinical Impression: Influenza A - Discharge Information *PRESCRIPTION DRUG MONITORING PROGRAM REVIEWED*: Not Applicable *COPY OF PRESCRIPTION DRUG MONITORING REPORT IN PATIENT JOSTIN: Not Applicable Prescriptions: Oseltamivir [Tamiflu] 1 cap PO Q12H #9 cap Instructions: Influenza, Adult, [id number] Referrals: Christofer Lennon MD [Primary Care Provider] - Forms: ED Department Discharge Additional Instructions: You were seen in the emergency room after developing fever, chills, a dry cough , and generalized weakness yesterday. Work-up in the ER included an influenza swab and a chest x-ray. Your chest x-ray was unremarkable - you do not have pneumonia, but your influenza swab returned positive for influenza A. You have been started on the anti-influenza medicine Tamiflu, and a prescription for Tamiflu has been sent to the [facility] located in the [place] store. Take 1 capsule of Tamiflu every 12 hours, as prescribed. Complete the 5-day course unless told otherwise by a doctor. Stay adequately hydrated. Gatorade or Powerade are best. You may take [id number] ibuprofen, 2 to 3 tablets (400-600 mg) every 8 hours, with food, as needed for discomfort. We recommend that you avoid [id number] cough or cold remedies, as they have been shown to be of no benefit, but do have side effects, such as stomach irritation. If any other problems, please do not hesitate to return to the ER. Sepsis Event Note - Evaluation Sepsis Screening Result: No Definite Risk - Focused Exam Date Exam was Performed: 04/14/19 Time Exam was Performed: 09:42 - My Orders Last 24 Hours: My Active Orders 04/13/19 14:39 Influenza Vaccine Charge [RC] .DISCHARGE - Assessment/Plan Last 24 Hours: My Active Orders 04/13/19 14:39 Influenza Vaccine Charge [RC] .DISCHARGE
[2019-04-13] MEDS ORDERED: FLU Vacc QS2019-20(6MOS+)/PF 60 MCG/0.5 ML SYRINGE IM ONE (14:45)
[2019-04-13] MEDS ORDERED: Oseltamivir 75 MG Cap PO ONE (15:10)
[2019-04-13] MEDS ORDERED: Oseltamivir 75 MG Cap ONE (15:12)
--- NOTE | 2019-04-14 07:45 | CR ---
Chest: Two views of the chest were obtained. Comparison: Prior chest x-ray of 08/17/18. Heart size and mediastinum are within normal limits. Lung markings are mildly increased and difficult to exclude slight bronchitis. Lungs otherwise are clear. Bony structures are unremarkable. Impression: 1. Difficult to exclude mild bronchitis. 2. Nothing acute is otherwise seen. Diagnostic code #2 This report was dictated in [place] Standard Time
== END 2019-04-13 15:40 | disposition home or self-care (01) ==
LOC: JD.ED 13:15
DX: J10.1 Influenza due to other identified influenza virus with other respiratory manifestations (principal); E66.9 Obesity, unspecified; Z88.0 Allergy status to penicillin; Z23 Encounter for immunization
CPT/HCPCS: 71046; 87804; 90471; 90686; 99283; A9270; G0008